=== PATIENT | female | born 1990 | race Caucasian/White ===

== ENCOUNTER 2025-02-28 16:28 | Emergency (ER) | payer MEDICARE, MEDICAID ==
[~2025-02-28] VITALS: Ht 160 cm; Wt 36.0 kg
[2025-02-28 16:58] VITALS: TEMP 98.9
--- NOTE | 2025-02-28 18:44 | ED.PDOC ---
History of Present Illness HPI Comments 34-year-old female who came to ER for generalized weakness. Patient has a history of hypertension, diabetes, end-stage renal disease, on dialysis every Monday. Patient unable to get her dialysis session yesterday, so she had her session today. Patient while undergoing dialysis, she felt generally weak and she passed out. Unable to finish her dialysis session. Patient currently complaining of headaches. Chief Complaint: General Weakness Time Seen by MD: 18:44 Reviewed Notes: Nurses Notes Allergies: Coded Allergies: NO KNOWN ALLERGIES (Unverified , 02/28/25) Information Source: Patient Mode of Arrival: EMS Severity: Moderate Past Medical History PAST MEDICAL HISTORY: DM, ESRD, HTN, Hypotension Past Medical History (Other): Left eye blind Surgical History (Other): Dialysis Monday FURNITURE REFINISHER History: Denies all FURNITURE REFINISHER Hx Family History Family History: Reviewed,noncontributory to illness Social History Smoker: Non-Smoker Alcohol: Denies ETOH Use Drugs: Denies Drug Use Lives In: Home Constitutional: reports: weakness, others (Loss of consciousness); denies: chills, diaphoresis, fatigue, fever, malaise, sweats EENTM: denies: blurred vision, double vision, ear bleeding, ear discharge, ear drainage, ear pain, ear ringing, eye pain, eye redness, hearing loss, mouth pain, mouth swelling, nasal discharge, nose bleeding, nose congestion, nose pain, photophobia, tearing, throat pain, throat swelling, voice changes, others Respiratory: denies: cough, hemoptysis, orthopnea, SOB at rest, shortness of breath, SOB with excertion, stridor, wheezing, others Cardiovascular: denies: chest pain, dizzy spells, diaphoresis, Dyspnea on exertion, edema, irregular heart beat, left arm pain, lightheadedness, palpitations, PND, syncope, others Gastrointestinal: denies: abdomen distended, abdominal pain, blood streaked bowels, constipated, diarrhea, dysphagia, difficulty swallowing, hematemesis, melena, nausea, poor appetite, poor fluid intake, rectal bleeding, rectal pain, vomiting, others Genitourinary: denies: abnormal vagina bleeding, burning, dyspareunia, dysuria, flank pain, frequency, hematuria, incontinence, pain, , vagina discharge, urgency, others Neurological: reports: headache; denies: dizziness, fainting, left sided numbness, left sided weakness, numbness, paresthesia, pre-existing deficit, right sided numbness, right sided weakness, seizure, speech problems, tingling, tremors, weakness, others Musculoskeletal: denies: back pain, gout, joint pain, joint swelling, muscle pain, muscle stiffness, neck pain, others Integumetry: denies: bruises, change in color, change in hair/nails, dryness, laceration, lesions, lumps, rash, wounds, others Allergic/Immunocompromised: denies: Difficulty Healing, Frequent Infections, Hives, Itching, others Hematologic/Lymphatic: denies: anemia, blood clots, easy bleeding, easy bruising, swollen glands, others Endocrine: denies: excessive hunger, excessive sweating, excessive thirst, excessive urination, flushing, intolerance to cold, intolerance to heat, unexplained weight gain, unexplained weight loss, others Psychiatric: denies: anxiety, bipolar disorder, depression, hopeless, panic disorder, schizophrenia, sleepless, suicidal, others Physical Exam General Appearance: No Apparent Distress, Normal HEENT: Normal ENT Inspection, Pharynx Normal, TMs Normal Neck: Full Range of Motion, Non-Tender, Normal, Normal Inspection Respiratory: Chest Non-Tender, Lungs Clear, No Accessory Muscle Use, No Respiratory Distress, Normal Breath Sounds Cardiovascular: No Edema, No JVD, No Murmur, No Gallop, Normal Peripheral Pulses, Regular Rate/Rhythm Breast Exam: Deferred Gastrointestinal: No Organomegaly, Non Tender, No Pulsatile Mass, Normal Bowel Sounds, Soft Genitalia: Deferred Pelvic: Deferred Rectal: Deferred Extremities: No calf tenderness, Normal capillary refill, Normal inspection, Normal range of motion, Non-tender, No pedal edema Musculoskeletal : Apperance: Normal Neurologic: Alert, blood donor unit assistant II-XII nml as Tested, No Motor Deficits, Normal Affect, Normal Mood, No Sensory Deficits Cerebellar Function: Normal Reflexes: Normal Skin: Dry, Normal Color, Warm Lymphatic: No Adenopathy Was a procedure done? Was a procedure done?: No Differential Dx Considerations may include: Anemia, electrolyte imbalance, end-stage renal disease, dehydration X-Ray, Labs, Meds, VS Vital Signs Date Time Temp Pulse Resp B/P (MAP) Pulse Ox O2 Delivery O2 Flow Rate FiO2 12/12/25 16:58 98.9 88 15 121/88 100 98.9 Lab Test 02/28/25 18:38 Range/Units White Blood Count 5.2 4.4-10.8 10^3/uL Red Blood Count 2.89 L 4.0-5.20 10^6/uL Hemoglobin 9.4 L 12.2-16.2 g/dL Hematocrit 27.5 L 36.0-46.0 % Mean Corpuscular Volume 95.1 80.0-100.0 fL Mean Corpuscular Hemoglobin 32.4 H 28.0-32.0 pg Mean Corpuscular Hemoglobin Concent 34.1 32.0-36.0 g/dL Red Cell Distribution Width 15.7 H 11.8-14.3 % Platelet Count 98 L 140-450 10^3/uL Mean Platelet Volume 9.6 6.9-10.8 fL Neutrophils (%) (Auto) 70.3 37.0-80.0 % Lymphocytes (%) (Auto) 20.1 10.0-50.0 % Monocytes (%) (Auto) 4.0 0.0-12.0 % Eosinophils (%) (Auto) 5.2 0.0-7.0 % Basophils (%) (Auto) 0.4 0.0-2.0 % Neutrophils # (Auto) 3.7 1.6-8.6 10 ^3/uL Lymphocytes # (Auto) 1.0 0.4-5.4 10 ^3/uL Monocytes # (Auto) 0.2 0-1.3 10 ^3/uL Eosinophils # (Auto) 0.3 0-0.8 10 ^3/uL Basophils # (Auto) 0 0-0.2 10 ^3/uL Nucleated Red Blood Cells 0.1 % Sodium Level 145 136-145 mmol/L Potassium Level 4.1 3.5-5.1 mmol/L Chloride Level 100 98-107 mmol/L Carbon Dioxide Level 34 H 20-31 mmol/L Anion Gap 11 5-15 Blood Urea Nitrogen 41 H 9-23 mg/dL Creatinine 5.39 H 0.550-1.02 mg/dL Glomerular Filtration Rate Calc 10 >90 mL/min BUN/Creatinine Ratio 7.6 L 10.0-20.0 Serum Glucose 91 74-106 mg/dL Calcium Level 8.9 8.7-10.4 mg/dL Magnesium Level 2.1 1.6-2.6 mg/dL Total Bilirubin 0.2 0.2-1.0 mg/dL Aspartate Amino Transferase (AST) 47 H 13-40 U/L Alanine Aminotransferase (ALT) 96 H 7-40 U/L Alkaline Phosphatase 186 H 46-116 U/L Total Protein 6.6 5.7-8.2 g/dL Albumin 4.0 3.2-4.8 g/dL Time of 1ST Reevaluation: 18:41 Reevaluation 1ST: Unchanged Patient Education/Counseling: Diagnosis, Treatment Family Education/Counseling: No Family Present SEPSIS Sepsis Screen Date sepsis recognized/suspect: Feb 28, 2025 Time Sepsis recognized/suspect: 1634 Recent Procedure: No On Antibiotic Therapy: No Respiratory Rate >20: No Heart Rate >90: No Temp<36 C (96.8 F) or >38.3 C: No SBP <90 or MAP <65 mmHG: No New Acute Mental Status Change: No Is the patient on CPAP, BIPAP,: No Physician Orders Sanitary Engineering Teacher (02/28/25 18:09) Electrocardigram (02/28/25 18:09) Chest Xray 1 View (02/28/25 18:29) Head Without Contrast (02/28/25 19:24) Vital Signs Date Time Temp Pulse Resp B/P (MAP) Pulse Ox O2 Delivery O2 Flow Rate FiO2 02/28/25 16:58 98.9 88 15 121/88 100 98.9 Laboratory Tests Test 02/28/25 18:38 White Blood Count 5.2 10^3/uL (4.4-10.8) Departure 1 Departure Time of Disposition: 21:11 Impression: Primary Impression: Metabolic encephalopathy Additional Impressions: Syncope Dialysis complication ESRD on dialysis Disposition: ADMITTED INPATIENT Admit to: Med Surg Condition: Guarded Discharged With: Self Comments 34 yo female with h/o poorly controlled DM and ESRD on dialysis T//Sat now with syncope during dialysis and confusion. She missed dialysis on and so made up today but did not finish dialysis. Patient will need admission for neuro monitoring and further workup and possible dialysis Critical Care Note Critical Care Time?: No Stability Stability form required: No Heart Score Heart Score: Heart Score Response (Comments) Value History N/A 0 EKG N/A 0 Age N/A 0 Risk Factors N/A 0 Troponin N/A 0 Total 0 I personally scribed for CESAR SANCHEZ MD ([email or web address]) on 02/28/25 at 18:44. Electronically submitted by Britton Pablo ([email or web address]). CESAR SANCHEZ MD Feb 28, 2025 18:44
[2025-02-28 19:00] LABS: Hematocrit 27.5 % (36.0-46.0); Hemoglobin 9.4 g/dL (12.2-16.2); Mean Corpuscular Hemoglobin 32.4 pg (28.0-32.0); Mean Corpuscular Volume 95.1 fL (80.0-100.0); Nucleated Red Blood Cells % 0.1 %
[2025-02-28 19:10] LABS: Anion Gap 11 (5-15); BUN/Creatinine Ratio 7.6 (10.0-20.0); Calcium 8.9 mg/dL (8.7-10.4); Chloride 100 mmol/L (98-107); Glucose 91 mg/dL (74-106); Magnesium 2.1 mg/dL (1.6-2.6); Potassium 4.1 mmol/L (3.5-5.1); Total Protein 6.6 g/dL (5.7-8.2)
[2025-02-28 19:11] LABS: Alanine Aminotransferase 96 U/L (7-40); Albumin 4.0 g/dL (3.2-4.8); Alkaline Phosphatase 186 U/L (46-116); Blood Urea Nitrogen 41 mg/dL (9-23); Carbon Dioxide 34 mmol/L (20-31); Sodium 145 mmol/L (136-145)
[2025-02-28 19:12] LABS: Bilirubin, Total 0.2 mg/dL (0.2-1.0)
--- NOTE | 2025-02-28 21:25 | DVH ---
CT HEAD WITHOUT CONTRAST HISTORY: ALOC after dialysis. COMPARISON: None available. CONTRAST: Study was performed without contrast. TECHNIQUE: Axial images from the skull base to the vertex with coronal and sagittal reformatted images. Dose reduction technique was used on this scan by utilizing automated exposure control, adjustment of the mA and/or kV according to the patient size. DICOM format image data available to non-affiliated external healthcare facilities or entities on a secure, media free, reciprocally searchable basis with patient authorization for at least a 12 month period after the study. CTDIvol: 54.9 mGy; DLP: 972.5 mGy-cm. FINDINGS: BRAIN PARENCHYMA: No acute hemorrhage, large vascular territory infarct, or mass effect. White matter is within normal limits for age. Marked cerebellar atrophy with ex vacuo dilation of the fourth ventricle. VENTRICLES/EXTRA-AXIAL SPACES: No evidence of hydrocephalus. No extra-axial collection. Basal cisterns are patent. EXTRACRANIAL STRUCTURES: No acute or suspicious ossues abnormality. Normal soft tissues. Partially images portions of the paranasal sinuses and mastoids demonstrate no significant abnormality. High-density layering material within the posterior aspects of the globes measuring up to 7 mm on the right and 13 mm on the left. Mild calcific atherosclerosis of the carotid siphons. IMPRESSION: 1. No acute intracranial abnormality. 2. Marked cerebellar atrophy with ex vacuo dilation of the fourth ventricle, which is nonspecific but be seen in the setting of chronic exposure to certain antiseizure medications or ethanol. Recommend clinical correlation. 3. High-density layering material within the posterior aspects of the globes measuring up to 7 mm on the right and 13 mm on the left, which favors vitreous hemorrhages. Recommend follow-up ophthalmology consultation.
--- NOTE | 2025-02-28 21:26 | DVH ---
CHEST RADIOGRAPH INDICATION: syncope / ESRD on dialysis TECHNIQUE: Single frontal view of the chest was obtained COMPARISON: None FINDINGS: Lines and Tubes: None Lungs: No focal consolidation. Pleura: No effusion. No pneumothorax. Cardiomediastinal contours: Unremarkable Bones: No acute osseous abnormality. IMPRESSION: No acute cardiopulmonary disease.
[2025-02-28 21:28] VITALS: BP 130/76; PULSE 62; RESP 20; O2SAT 100
== END 2025-02-28 21:43 | disposition left against medical advice (07) ==
LOC: EDBD 16:28 → ER 16:28
DX: G93.41 Metabolic encephalopathy (principal); R55 Syncope and collapse; I12.0 Hypertensive chronic kidney disease with stage 5 chronic kidney disease or end stage renal disease; E11.22 Type 2 diabetes mellitus with diabetic chronic kidney disease; N18.6 End stage renal disease; Z99.2 Dependence on renal dialysis; Z79.899 Other long term (current) drug therapy
CPT/HCPCS: 36415; 70450; 71045; 80053; 83735; 85025